=== PATIENT | female | born 1970 | race Caucasian/White ===

== ENCOUNTER → 2018-09-20 | Outpatient (CLI) | payer OTHER ==
--- NOTE | 2018-09-21 10:58 | MAM ---
EXAM DESCRIPTION: 3D Screening BILATERAL : Digital Mammography. CLINICAL HISTORY: 47 years Female ANNUAL SCREENING . No complaints. No personal or family history of breast cancer. Childbirth. Premenopausal. HRT 5 or more years ago. Lifetime risk of developing breast cancer (Tyrer-Cuzick model)(%): 6.2. COMPARISON: None available. No prior reports available. TECHNIQUE: Bilateral CC and MLO projection full-field images, digital tomosynthesis mammographic technique. Bilateral digital 2-D full-field MLO images. CAD not available for tomosynthesis or 2-D images. FINDINGS: The breast parenchymal density pattern is: Scattered areas of fibroglandular density. No skin thickening or nipple retraction. Right axillary lymph nodes. Bilateral solitary microcalcifications. Focal asymmetry/architectural distortion in the lower outer quadrant of the middle third of the right breast, 10:00 position, approximately 6 cm from the nipple. Focal asymmetry in the middle third of the left breast, inferior right breast at the 6:00 position, 6.5 cm from the nipple. Not associated with suspicious microcalcifications. IMPRESSION: BI-RADS CATEGORY: 0 - INCOMPLETE- Need additional imaging evaluation. FOLLOW-UP: Recall for additional imaging: Bilateral orthogonal full-field diagnostic images with following targeted bilateral breast ultrasound if indicated by diagnostic images.. Written communication concerning the IMPRESSION and Follow-up, will be mailed to the patient and referring health care provider. Electronically signed by: Alejandro Weaver MD 09/21/2018 10:57 AM TABLE OPERATOR
== END ==
LOC: MAMMO 08:40
PROVIDERS: ATTEND Family Medicine
DX: Z12.31 Encounter for screening mammogram for malignant neoplasm of breast (principal)

== ENCOUNTER → 2018-09-28 | Outpatient (CLI) | payer OTHER ==
--- NOTE | 2018-09-28 16:52 | MAM ---
EXAM DESCRIPTION: 3D Diagnostic, Bilateral: Digital Mammography CLINICAL HISTORY: 47 yearsFemaleABNORMAL MAMMO bilateral breast focal asymmetry.. COMPARISON: Bilateral screening digital breast tomosynthesis 09/20/2018.. Bilateral targeted breast ultrasound as part of this examination.. TECHNIQUE: Bilateral LM projection full-field images, digital mammographic tomosynthesis technique. CAD not utilized. FINDINGS: The breast parenchymal density pattern is: Scattered areas of fibroglandular density. No skin thickening or nipple retraction bilateral axillary lymph nodes. Coarse microcalcification in the mid right breast. No dominant focal mass. ULTRASOUND: Scanning of the right breast laterally from the nipple to the chest wall with emphasis at the 8:00 and 9:00 positions. Heterogeneous mixture of fibroglandular and fatty echotexture. No dominant solid mass or distinct cyst. No parenchymal edema or large calcifications. No overlying skin changes. Normal vascularity. Scanning of the under surface of the left breast, emphasis on the 6:00 position, nipple to chest wall. Heterogeneous mixture of fibroglandular and fatty echotexture. No dominant solid mass or distinct cyst. No parenchymal edema or large calcifications. No overlying skin changes. Normal vascularity. IMPRESSION: Benign exam. BIRAD CATEGORY: 2 BENIGN FINDINGS. RECOMMENDATIONS: FOLLOW UP: Return to routine digital bilateral mammographic screening, one year interval from September 2018. The FINDINGS and the FOLLOW-UP plan were reviewed in person with the patient after the examination. Written communication explaining the IMPRESSION and FOLLOW-UP will be mailed to the patient and referring care provider. According to the [employer], yearly mammograms are recommended starting at age 40 and continuing as long as a woman is in good health. Any breast change noted on a breast self-exam should be reported promptly to the patient's healthcare provider. Breast MRI is recommended for women with an approximately 20-25% or greater lifetime risk of breast cancer, including women with a strong family history of breast or ovarian cancer and women who have been treated for Hodgkin's disease. A negative mammographic report should not delay tissue diagnosis in patients with significant clinical history or physical findings. Extremely dense breast tissue limits the sensitivity of digital mammography. Electronically signed by: Alejandro Weaver MD 09/28/2018 4:51 PM [employer] SOLUTION ARCHITECT
--- NOTE | 2018-09-28 16:53 | US ---
EXAM DESCRIPTION: Breast,Bilateral: Ultrasound CLINICAL HISTORY: 47 yearsFemaleABNORMAL MAMMO COMPARISON: Digital diagnostic tomosynthesis bilateral breast on this visit. Bilateral screening digital breast tomosynthesis 09/20/2018. TECHNIQUE: Transcutaneous scanning of the bilateral breasts utilizing stoddard-scale and Doppler modes. Scanning performed by the stripping shovel oiler and Dr. Weaver. FINDINGS: Scanning of the right breast laterally from the nipple to the chest wall with emphasis at the 8:00 and 9:00 positions. Heterogeneous mixture of fibroglandular and fatty echotexture. No dominant solid mass or distinct cyst. No parenchymal edema or large calcifications. No overlying skin changes. Normal vascularity. Scanning of the under surface of the left breast, emphasis on the 6:00 position, nipple to chest wall. Heterogeneous mixture of fibroglandular and fatty echotexture. No dominant solid mass or distinct cyst. No parenchymal edema or large calcifications. No overlying skin changes. Normal vascularity. IMPRESSION: 1. Bi-Rads Category 2: Benign. 2. Please refer to bilateral diagnostic tomosynthesis examination and report on this visit. The FINDINGS and the FOLLOW-UP plan were reviewed in person with the patient after the examination. Written communication explaining the IMPRESSION and FOLLOW-UP will be mailed to the patient and referring care provider. Electronically signed by: Alejandro Weaver MD 09/28/2018 4:51 PM [facility]
== END ==
LOC: MAMMO 10:00
PROVIDERS: ATTEND Family Medicine
DX: R92.8 Other abnormal and inconclusive findings on diagnostic imaging of breast (principal)
CPT/HCPCS: 76641; 77066; G0279

== ENCOUNTER → 2018-11-03 | Outpatient (CLI) | payer BC ==
--- NOTE | 2018-11-03 13:02 | RAD ---
EXAM DESCRIPTION: Cervical Spine,3 Views CLINICAL HISTORY: 47 years Female, CHRONIC PAIN TECHNIQUE: 3 views of the cervical spine were obtained. COMPARISON: None available. FINDINGS: The craniocervical junction is intact. There is normal alignment of the odontoid process with the lateral masses The vertebral body heights are well-maintained with no acute compression deformity. There is mild multilevel degenerative disc disease and uncovertebral joint arthropathy. The visualized prevertebral and paravertebral soft tissues appear grossly unremarkable. IMPRESSION: Mild multilevel degenerative disc disease and uncovertebral joint arthropathy throughout the cervical spine. Electronically signed by: Cara Spear MD 11/03/2018 1:01 PM [facility]
--- NOTE | 2018-11-03 13:08 | RAD ---
EXAM DESCRIPTION: Lumbar Spine 3 Views CLINICAL HISTORY: 47 years Female, CHRONIC PAIN COMPARISON: None available. FINDINGS: Straightening of the normal lordotic curvature is noted. The vertebral body heights are well-maintained with no acute compression deformity. Multilevel mild degenerative disc disease and facet arthropathy is identified, worse at L4-L5 and L5-S1 levels. No evidence of spondylolysis or spondylolisthesis. The visualized prevertebral and paravertebral soft tissues appear grossly unremarkable. IMPRESSION: Multilevel mild degenerative disc disease and facet arthropathy is identified, worse at L4-L5 and L5-S1 levels. Electronically signed by: Cara Spear MD 11/03/2018 1:07 PM [facility]
--- NOTE | 2018-11-03 13:12 | RAD ---
EXAM DESCRIPTION: Thoracic Spine,AP Lateral CLINICAL HISTORY: 47 years Female, CHRONIC PAIN COMPARISON: None. TECHNIQUE: 2 views of the thoracic spine were obtained. FINDINGS: The vertebral body heights are well-maintained with no acute compression deformity. There is mild multilevel degenerative disc disease and facet arthropathy. No subluxation. IMPRESSION: Mild multilevel degenerative disc disease and facet arthropathy of the thoracic spine. Electronically signed by: Cara Spear MD 11/03/2018 1:10 PM [facility]
== END ==
LOC: RAD 11:10
PROVIDERS: ATTEND Nurse Practitioner Family
DX: G89.29 Other chronic pain (principal); M51.34 Other intervertebral disc degeneration, thoracic region; M51.36 Other intervertebral disc degeneration, lumbar region; M51.37 Other intervertebral disc degeneration, lumbosacral region; M50.31 Other cervical disc degeneration, high cervical region; M50.320 Other cervical disc degeneration, mid-cervical region, unspecified level

== ENCOUNTER → 2019-09-26 | Outpatient (CLI) | payer BC ==
--- NOTE | 2019-09-27 14:07 | US ---
EXAM DESCRIPTION: Venous,Lower Extremity LT: ULTRASOUND. CLINICAL HISTORY: PAIN TO LEFT LOWER LIMB COMPARISON: None Available. TECHNIQUE: Chahal-scale and doppler sonographic evaluation of the deep venous system of the left lower extremity. FINDINGS: Doppler evaluation shows normal color flow and normal phasicity and augmentation of the left common femoral vein, femoral vein, popliteal vein, greater saphenous vein, junction with the CFV. Also normal color flow and normal phasicity and augmentation of the peroneal, and posterior tibial vein. The left lower extremity deep veins were completely compressible; normal occlusion with transducer pressure. Chahal-scale survey showed no echogenic thrombus within these veins. IMPRESSION: 1. Duplex ultrasound evaluation of the left lower extremity deep venous system showing no evidence of thrombosis. Electronically signed by: Alejandro Weaver MD 09/27/2019 2:06 PM HOSPITALIST NOCTURNIST PHYSICIAN
== END ==
LOC: US 11:37
PROVIDERS: ATTEND Nurse Practitioner Family
DX: M79.605 Pain in left leg (principal)